=== PATIENT | male | born 1970 | race Caucasian/White ===

== ENCOUNTER → 2024-11-02 | Outpatient (CLI) | payer MEDICARE, OTHER, SELFPAY ==
--- NOTE | 2024-11-02 14:30 | XR_ITS ---
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 3 mm slice thickness, from the hemidiaphragms to above the apices of the lungs. Mediastinal and lung density settings have been obtained. Intravenous contrast administered 60 cc Isovue-370. Noncontrast images have also been obtained. 2-D sagittal coronal images obtained. Low dose protocols were performed. One or more of the following dose reduction techniques were used; automated exposure control, adjustment of the mA and/or KV according to patient size, use of iterative reconstruction technique. Findings: No thoracic aortic aneurysm dilatation or dissection Pulmonary artery opacification is poor No paratracheal tracheobronchial or bronchopulmonary adenopathy Significant diffuse miliary nodular pattern throughout the lower lung zones No pleural disease No visualized liver or splenic lesion Partial visualization orthopedic hardware thoracolumbar junction, severe osteopenia IMPRESSION: Diffuse miliary nodular infectious pattern throughout the lower lung zones, clinical correlation advised
== END | disposition home or self-care (01) ==
PROVIDERS: Referring Provider Registered Nurse; Visit Provider Registered Nurse
DX: R91.8 Other nonspecific abnormal finding of lung field (principal)
CPT/HCPCS: 71270; A4649; Q9967

== ENCOUNTER → 2025-04-27 | Outpatient (CLI) | payer MEDICARE, OTHER, SELFPAY ==
--- NOTE | 2025-04-27 14:31 | XR_ITS ---
Examination: Testicular sonography complete TECHNIQUE: Grayscale sonographic images testes, assessment arterial inflow venous outflow Doppler spectral analysis carful analysis Date and time: April 27, 2025 1445 hours INDICATIONS: Right testicular swelling and pain after falling 4 days ago. FINDINGS: Right testis 4.9 cm epididymis 12 mm Arterial flow testicle. No testicular mass Mild hydrocele Left testis 4.3 cm epididymis 12 mm Arterial flow testicle. No testicular mass IMPRESSION: No testicular torsion or testicular mass
== END | disposition home or self-care (01) ==
PROVIDERS: PCP Family Medicine; Referring Provider Registered Nurse; Visit Provider Registered Nurse
DX: S39.94XA Unspecified injury of external genitals, initial encounter (principal); W19.XXXA Unspecified fall, initial encounter
CPT/HCPCS: 76870

== ENCOUNTER 2025-06-29 19:24 | Emergency (ER) | payer MEDICARE, OTHER, SELFPAY ==
[2025-06-29 19:25] VITALS: BMI 18.7
[2025-06-29 19:43] VITALS: BP 115/76; PULSE 92; RESP 20; TEMP 36.7; O2SAT 96
--- NOTE | 2025-06-29 20:04 | PD.EDRME ---
Rapid Medical Screening Exam RME Arrival date/time: 06/29/25 19:24 54-year-old male with a history of renal cancer sent in by PCP for sudden 35 pound weight loss in the last 30 days, bibasilar pneumonia with a 17,000 white cell count, and pelvic fracture Chief Complaint: General Adult/Misc Complain Time Seen by Provider: 06/29/25 19:28 Vital signs: Vital Signs Temperature 98.1 F 06/29/25 19:43 Pulse Rate 92 06/29/25 19:43 Respiratory Rate 20 06/29/25 19:43 Blood Pressure 115/76 06/29/25 19:43 Pulse Oximetry (%) 96 06/29/25 19:43 Oxygen Delivery Method Room Air 06/29/25 19:43 Exam: 0 Clinical Impression: 0
[2025-06-29 20:51] VITALS: BP 122/80; PULSE 94; RESP 16; O2SAT 95
[2025-06-29 21:11] LABS: Influenza A Ag Negative; Influenza B Ag Negative
--- NOTE | 2025-06-29 21:59 | PD.EDSOB ---
ED SOB =RME/HPI General Chief Complaint: General Adult/Misc Complain Stated Complaint: sent by pcp pneumonia and pelvic rx Time Seen by Provider: 06/29/25 19:28 Arrival date/time: 06/29/25 19:24 RME / HPI RME / HPI Narrative: 06/29/25 19:24 54-year-old male with a history of renal cancer sent in by PCP for sudden 35 pound weight loss in the last 30 days, bibasilar pneumonia with a 17,000 white cell count, and pelvic fracture DR. TRIPLETT MAIN ED EVALUATION: Patient is a complex medical patient with Hx of Park/COPD/Esophageal stricture recquiring dilation due to Parkinson's Disease. Now presenting with ongoing productive cough x approximately 1 week. no defi fever, chills, vom, or diarrhera notes mild boutdd of SOB. PMH: Parkinson's Disease, Peripheral Neuropathy, Chronic Obstructive Pulmonary Disease, Asthma, Dysphagia, Gastrointestinal Bleed, Ulcer, Gastroesophageal Reflux Disease, Benign Prostatic Hyperplasia, Arthritis, Osteoporosis, Degenerative Joint Disease, Anemia, Bipolar Disorder PSH: Partial nephrectoomy, Multiple back surgeries, Chest tube thoracostomy due to empyema Allergies: NKDA Social: Prior smoker, occasional alcohol consumption, no illicit drug abuse Exam: 0 Impression: 0 Related Data Home Medications ?Medication ?Instructions ?Recorded ?Confirmed ascorbate calcium (vitamin C) 500 500 mg PO QDAY 05/21/19 02/18/23 mg tablet cetirizine 10 mg tablet (Zyrtec) 10 mg PO QDAY 05/21/19 02/18/23 ferrous sulfate 325 mg (65 mg 325 mg PO QDAY 05/21/19 02/18/23 iron) tablet (FeroSul) fluoxetine 40 mg capsule 40 mg PO ACHS 05/21/19 02/18/23 gabapentin 300 mg capsule 300 mg PO QID 05/21/19 02/18/23 hydrocodone 10 mg-acetaminophen 1 tab PO TID PRN Pain 05/21/19 02/18/23 325 mg tablet (Tully) Held on 02/18/23. Instructions: Resume on 02/19/23. ipratropium 18 mcg-albuterol 103 1 spray inhalation TID 05/21/19 02/18/23 mcg/actuation aerosol inhaler morphine 60 mg capsule,extended 60 mg PO BID 05/21/19 02/18/23 release pellets Held on 02/18/23. Instructions: Resume on 02/19/23. olanzapine 20 mg tablet 20 mg PO ACHS 05/21/19 02/18/23 omeprazole 40 mg capsule,delayed 40 mg PO QDAY 05/21/19 02/18/23 release tamsulosin 0.4 mg capsule (Flomax) 0.4 mg PO QDAY 05/21/19 02/18/23 vitamin B complex (B 1 tab PO QDAY 05/21/19 02/18/23 Complex-Vitamin B12 tablet) carbidopa 25 mg-levodopa 100 mg 2 tab PO QID 10/22/19 02/18/23 disintegrating tablet docusate sodium 100 mg tablet 200 mg PO QDAY 02/18/23 02/18/23 morphine 60 mg tablet,extended 60 mg PO BID 02/18/23 02/18/23 release Held on 02/18/23. Instructions: Resume on 02/19/23. Previous Rx's ?Medication ?Instructions ?Recorded amoxicillin 500 mg-potassium 1 tab PO TID #90 tabs 12/12/22 clavulanate 125 mg tablet (Augmentin) levofloxacin 750 mg tablet 750 mg PO Q24H #14 tabs 06/29/25 prednisone 20 mg tablet 20 mg PO QDAY 5 days #5 tabs 06/29/25 Allergies Allergy/AdvReac Type Severity Reaction Status Date / Time No Known Allergies Allergy Verified 06/29/25 19:30 Review of Systems Review of Systems Systems Reviewed: All systems reviewed, normal except as documented Past Medical History Past Medical History NEUROLOGIC: Positive Parkinson's Disease and Peripheral Neuropathy RESPIRATORY: Positive Chronic Obstructive Pulmonary Disease (COPD) and Asthma GASTROINTESTINAL: Positive Gastrointestinal Disorders (dysphagia), Gastrointestinal Bleed, Ulcer and Gastroesophageal Reflux Disease GENITOURINARY: Positive Benign Prostatic Hyperplasia MUSCULOSKELETAL: Positive Arthritis, Osteoporosis, Fractures and Degenerative Joint Disease HEMATOLOGIC: Positive Blood Disorders, Anemia and Clotting Problems PSYCHO/SOCIAL: Positive Bipolar Disorder OTHER HISTORY: Positive Blood Transfusions, Chicken Pox and Cancer (kidney) Surgical History SURGICAL: Positive Joint Replacement Social History SMOKING STATUS: Current every day smoker ED Exam Narrative Physical exam: GEN. APPEARANCE: The patient is alert awake oriented X-3 under no distress, lying down comfortably, appears chronically ill. Patient has good eye contact. Patient is cooperative. VITALS: All vitals were reviewed and the pulse ox is 95%, which is normal according to my interpretation HEENT: Normocephalic, atraumatic and nontender. Pupils are equal and reactive. Oral mucosa is moist. NECK: Supple, nontender, no meningismus, no JVD. There is no thyromegaly and no lymphadenopathy. CHEST: Nontender on palpation no deformity and no crepitus. CARDIOVASCULAR: Heart regular rhythm, no murmur or gallop rub or extra beats. LUNGS: Bibasilar rales with symmetrical chest rise. No laboring tachypnea or wheezing. No intercostal subcostal retraction. No rhonchi. ABDOMEN: Soft, flat, nontender to palpation, no guarding or rebound tenderness. There are no abnormal masses palpated. No pulsatile masses or bruits. Active and normal bowel sounds. EXTREMITIES: Normal inspection and palpation. No edema. No cyanosis. Patient is able to move all 4 extremities well SKIN: Warm and dry, no rashes noted. MUSCULOSKELETAL: No lumbar or midline bony tenderness. There is no CVA tenderness. No paraspinal muscle spasm or tenderness. NEURO: Cranial nerves II through XII grossly intact. There are no focal neurologic deficits noted. GCS is 15 PSYCHIATRIC: Patient is in normal mood and affect, cooperative. LYMPHATICS: No major lymphadenopathy noted. Course Quality Measures none Orders Category Date Time Status Bedside COVID-19 Antigen Test NOW Care 06/29/25 20:36 Active COVID-19 Screening Questionnaire NOW Care 06/29/25 20:[address] Screening NOW Care 06/29/25 21:[address] angio pelvis Stat Exams 06/29/25 21:59 Stop Req FLU A&B [Influenza A & B Rapid Panel] Stat Lab 06/29/25 20:39 Completed Levofloxacin/D5w 500 mg Ivpb [Levaquin Ivpb] Med 06/29/25 21:59 Discontinued 500 mg in 100 ml IV X1 Vital Signs Vital signs: Vital Signs Temperature 98.1 F 06/29/25 19:43 Pulse Rate 92 06/29/25 19:43 Respiratory Rate 20 06/29/25 19:43 Blood Pressure 115/76 06/29/25 19:43 Pulse Oximetry (%) 96 06/29/25 19:43 Oxygen Delivery Method Room Air 06/29/25 19:43 Shortness of Breath / Dyspnea MDM Narrative MDM Narrative:: Scribe Attestation: I, Nighat Meyers, am scribing for and in the presence of Dr. Langston. Provider Notation: Although this document has been carefully reviewed, there may still be some phonetic and other typographical errors. These errors are purely grammatical due to imperfections in the software program and should not be construed in any way to compromise the substance of the patient's medical care during this visit. Please see PE findings. Laboratory findings demonstrate elevated WBC of 17.3, stable hemoglobin of 13, and mild thrombocytosis with platelet count of 457. Serum chemistries essentially unremarkable. CXR demonstrates bibasillar PNA. CT Abdomen/Pelvis demonstrates comminuted inferior pubic rami frx with pelvic hematoma. Further inquiry indicates patient fell 2 months [employer] and currently has no pelvic pain. Hemodynamically stable. Radiologist suggests IV to delineate extent of hematoma. Will administer Levaquin for PNA and will formulate disposition post-CTA. Patient refused CT scan. Will discharge to home given hemodynamic stability and time that has elapsed since pelvic fracture. Will place on 14-day course of Levaquin with instructions to F/U with PMD, precautionary instructions issued. Patient data External records reviewed:: [facility] previous records (Reviewed prior ED records from 12/04/22. Patient was seen for Empyema.) Clinical information provided by:: patient Social determinants that could affect healthcare access:: none Patient has the following chronic illnesses:: Parkinson's Disease, Peripheral Neuropathy, Chronic Obstructive Pulmonary Disease, Asthma, Dysphagia, Gastrointestinal Bleed, Ulcer, Gastroesophageal Reflux Disease, Benign Prostatic Hyperplasia, Arthritis, Osteoporosis, Degenerative Joint Disease, Anemia, Bipolar Disorder How is presenting disease/condition affected by chronic disease/condition?: exacerbated by Evaluation data The following diagnostics were reviewed and interpreted by me:: other (specify) (N/A) Lab and/or radiology exams considered but not ordered:: None Interpretation Summary: See MDM above Medications / Prescriptions Medications or Prescriptions considered but not ordered:: None Medication administrations:: Medication Administration History Discontinued Medications Levofloxacin/Dextrose (Levaquin Ivpb) 500 mg in 100 mls @ 100 mls/hr IV X1 ONE Stop: 06/29/25 22:58 Last Infusion: 06/29/25 23:32 Dose: Infused Documented By: Admin: 06/29/25 22:31 Dose: 100 mls/hr Documented By: NYLA See above if any Consultations Consultation(s) initiated? (list below): No Diagnosis Shortness of Breath Differential Diagnosis: congestive heart failure, community acquired pneumonia and pulmonary embolism Most likely diagnosis given after review of the tests above:: Pneumonia, Pelvic hematoma, Fracture of inferior pubic ramus Admission Indicated Admission indicated?: not indicated Explain why admission is indicated or not indicated:: Patient does not meet admission criteria Admission Request Was there a request for admission?: No Disposition Plan Disposition Plan: Discharge Discharge Attestation Discharge Attestation: The patient and all family members were given an opportunity to ask questions and understood the discharge instructions. Discharge instructions specifically effects, indications for sooner follow up or return to the emergency department, and the expected course of current diagnosis. Patient condition: Stable Discharge Plan Plan Patient Disposition: HOME (Self Care) Discharge Disposition comment: Stable Prescriptions/Referrals Prescriptions/Med Rec: New levofloxacin 750 mg tablet 750 mg PO Q24H Qty: 14 0RF prednisone 20 mg tablet 20 mg PO QDAY 5 Days Qty: 5 0RF Taper: Prednisone Taper 40 mg DAILY for 3 Days and 0 Hour No Action omeprazole 40 mg capsule,delayed release(DR/EC) 40 mg PO QDAY gabapentin 300 mg capsule 300 mg PO QID fluoxetine 40 mg capsule 40 mg PO ACHS olanzapine 20 mg tablet 20 mg PO ACHS hydrocodone-acetaminophen [Tully] 10-325 mg tablet 1 tab PO TID PRN (Reason: Pain) ipratropium-albuterol 18-103 mcg/actuation aerosol 1 spray INH TID ferrous sulfate [FeroSul] 325 mg (65 mg iron) tablet 325 mg PO QDAY tamsulosin [Flomax] 0.4 mg capsule 0.4 mg PO QDAY ascorbate calcium (vitamin C) 500 mg tablet 500 mg PO QDAY vitamin B complex [B Complex-Vitamin B12] tablet 1 tab PO QDAY cetirizine [Zyrtec] 10 mg tablet 10 mg PO QDAY morphine 60 mg capsule,extend.release pellets 60 mg PO BID carbidopa-levodopa 25-100 mg tablet,disintegrating 2 tab PO QID morphine 60 mg tablet extended release 60 mg PO BID Patient Comments: TAKE 1 TABLET BY MOUTH EVERY 12 HOURS docusate sodium 100 mg Tablet 200 mg PO QDAY amoxicillin-pot clavulanate [Augmentin] 500-125 mg tablet 1 tab PO TID Qty: 90 3RF Rx Instructions: 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 Print Language: Malay Stand Alone Forms: [employer] Award Info., Patient Portal Info Letter
[2025-06-29] MEDS: LEVOFLOXACIN/D5W 500 MG IVPB 500 MG/100 ML BAG 100 MG IV (22:31)
[2025-06-29 23:06] VITALS: BP 115/67; PULSE 79; RESP 12; TEMP 36.4; O2SAT 95
--- NOTE | 2025-06-29 23:38 | PC.NURSE ---
THIS RN ENTERED ROOM TO UPDATE PATIENT CT ON THEIR WAY TO TAKE HIM TO CT SCAN. PER PATIENT I DONT WANT TO DO IT I JUST WANT TO LEAVE. . PER PATIENT WE JUST WANT TO LEAVE. WE DONT WANT THE CT SCAN. . PROVIDER D INFORMED.
[2025-06-29 23:52] VITALS: BP 124/85; PULSE 69; RESP 14; O2SAT 99
== END 2025-06-29 23:52 | disposition home or self-care (01) ==
PROVIDERS: Emergency Provider Emergency Medicine
DX: J18.9 Pneumonia, unspecified organism (principal); S32.511A Fracture of superior rim of right pubis, initial encounter for closed fracture; W19.XXXA Unspecified fall, initial encounter; F17.210 Nicotine dependence, cigarettes, uncomplicated
CPT/HCPCS: 36415; 71046; 74176; 80053; 82150; 83690; 85025; 87502; 87635; 96365; 99282; J1956

== ENCOUNTER → 2025-06-29 | Outpatient (CLI) | payer MEDICARE, OTHER, SELFPAY ==
--- NOTE | 2025-06-29 10:29 | XR_ITS ---
Examination: CT abdomen and pelvis without contrast. Coronal 3-D reconstructions. Sagittal 2-D reconstructions. Date and time of exam: June 29, 2025, 1107 hours INDICATIONS: Right-sided abdominal pain beginning 2 weeks ago COMPARISON: February 04, 2023 CTDI: vol (mGy): 6.5 DLP: (mGycm): 354 Technique: Axial images of the abdomen have been obtained, 3 mm slice thickness Intravenous contrast material has not been administered. Low dose protocols were performed. One or more of the following dose reduction techniques were used; automated exposure control, adjustment of the mA and/or KV according to patient size, use of iterative reconstruction technique. Findings: COPD with scarring in the right lower lung zone No visualized liver or splenic lesion No definite gallstones Lack of intravenous contrast severely limits the study Scarred atrophic right kidney No hydronephrosis or ureteral calculi Heavy abdominal aortic calcification Abundant stool throughout the colon especially in the rectosigmoid with thickening of the rectal wall Contracted urinary bladder Interval severely comminuted subacute fractures right inferior superior pubic rami Hips intact Hematoma about the rami fractures IMPRESSION: Severely comminuted subacute fractures right superior and inferior pubic rami Recommend repeating the study with intravenous contrast to assess the extent of hematoma in the right pelvis
--- NOTE | 2025-06-29 10:31 | XR_ITS ---
EXAMINATION: PA lateral chest 2 views Technique when upright PA lateral chest 2 views Date and time: June 29, 2025, 11:13 a.m., comparison February 16, 2024 INDICATIONS: Shortness of breath beginning 2 weeks ago. FINDINGS: Bilateral perihilar pneumonia Normal heart size Prominent osteopenia Probable pleural-parenchymal scarring in the right upper lobe IMPRESSION: Bilateral perihilar pneumonia, please see the CT chest report November 02, 2024 indicating significant diffuse miliary nodular pattern throughout both lungs, consider repeat high-resolution CT chest without contrast follow-up
[2025-06-29 11:41] LABS: Basophils # (Auto) 0.1 Thou/mm3 (0.0-0.2); Basophils % (Auto) 0 % (0-2.5); Eosinophils # (Auto) 0.1 Thou/mm3 (0.0-0.5); Eosinophils % (Auto) 1 % (0-10); Hematocrit 40.1 % (41.0-53.0); Hemoglobin 13.0 g/dL (13.5-16.0); Immature Granulocytes Auto 0.23 Thou/mm3 (0.00-0.00); Lymphocytes # (Auto) 1.9 Thou/mm3 (1.0-4.8); Lymphocytes % (Auto) 11 % (10-50); Mean Corpuscular HGB Conc 32.4 g/dl (31.0-37.0); Mean Corpuscular Hemoglobin 29.7 pg (25.0-35.0); Mean Corpuscular Volume 92 fL (80-100); Monocytes # (Auto) 0.9 Thou/mm3 (0.0-0.8); Monocytes % (Auto) 5 % (0-12); Neutrophils # (Auto) 14.2 Thou/mm3 (1.8-7.7); Neutrophils % (Auto) 82 % (37-80); Nucleated Red Blood Cell # 0.00 Thou/mm3 (0.00-0.00); Nucleated Red Blood Cell % 0 /100 WBC (0); Platelet Count 457 Thou/mm3 (140-440); RDW Standard Deviation 47.7 fL (35.1-43.9); Red Blood Count 4.38 Miln/mm3 (4.50-5.90); White Blood Count 17.3 Thou/mm3 (3.8-10.6)
[2025-06-29 12:14] LABS: Alanine Aminotransferase < 7 U/L (10-49); Albumin, Serum 4.1 gm/dL (3.5-5.0); Albumin/Globulin Ratio 1.2 (1.2-2.2); Alkaline Phosphatase 186 U/L (46-116); Amylase 58 U/L (30-118); Anion Gap 8 (7-16); Aspartate Amino Transferase 23 U/L (0-34); BUN/Creatinine Ratio 9 Ratio (12-20); Bilirubin,Total 0.3 mg/dL (0.3-1.2); Blood Urea Nitrogen 7 mg/dL (9-23); Calcium 9.3 mg/dL (8.3-10.6); Calcium (Corrected) 9.3 mg/dL (8.5-10.1); Carbon Dioxide 29.5 mMol/L (20.0-31.0); Chloride 99 mMol/L (98-107); Creatinine (Component) 0.8 mg/dL (0.6-1.3); Globulin 3.5 gm/dL (2.3-3.5); Glucose 96 mg/dL (74-106); Lipase 43 U/L (12-53); Osmolality,Calculated 269 (275-295); Potassium 4.5 mMol/L (3.4-5.1); Sodium 136 mMol/L (136-145); Total Protein 7.6 gm/dL (5.7-8.2); eGFR > 60 See Note
== END | disposition home or self-care (01) ==
PROVIDERS: PCP Family Medicine; Referring Provider Nurse Practitioner Family; Visit Provider Nurse Practitioner Family
DX: S32.511A Fracture of superior rim of right pubis, initial encounter for closed fracture (principal); X58.XXXA Exposure to other specified factors, initial encounter; J18.9 Pneumonia, unspecified organism
CPT/HCPCS: 36415; 71046; 74176; 80053; 81001; 82150; 83690; 85025

== ENCOUNTER → 2025-07-19 | Outpatient (CLI) | payer MEDICARE, OTHER, SELFPAY ==
--- NOTE | 2025-07-19 13:00 | XR_ITS ---
Examination: CT chest with intravenous contrast CT chest without intravenous contrast 2-D reconstructions Date and time of exam: July 19, 2025, 1335 hours, comparison November 02, 2024 INDICATIONS: Chest pain shortness of breath beginning 1 month ago CTDI:vol (mGy) 16.2 DLP: (mGycm) 593 Technique: Multiple axial sections of the thorax have been obtained. 3 mm slice thickness, from the hemidiaphragms to above the apices of the lungs. Mediastinal and lung density settings have been obtained. Intravenous contrast administered 60 cc Isovue-370. Noncontrast images have also been obtained. 2-D sagittal coronal images obtained. Low dose protocols were performed. One or more of the following dose reduction techniques were used; automated exposure control, adjustment of the mA and/or KV according to patient size, use of iterative reconstruction technique. Findings: No thoracic aortic aneurysmal dilatation No pulmonary artery filling defects No paratracheal tracheobronchial or bronchopulmonary adenopathy Soft parenchymal disease throughout both lungs, most prominent in the right upper lobe and right lower lobe The lower lobe infiltrate again appears miliary in configuration No visualized liver or splenic lesion Distended gallbladder partially visualized Atrophic right kidney No pancreatic mass Prominent osteopenia with chronic osteoporotic compression T8 and T7 T8 compression shows sclerosis suspicious for pathologic fracture IMPRESSION: Miliary infiltrate, extensive throughout the lungs again noted, differential would include active tuberculosis Compression fractures T7, T8, T8 compression fracture demonstrate sclerosis suspicious for pathologic fracture, recommend MRI thoracic spine follow-up pre and postcontrast
== END | disposition home or self-care (01) ==
PROVIDERS: PCP Registered Nurse; Referring Provider Registered Nurse; Visit Provider Registered Nurse
DX: R91.8 Other nonspecific abnormal finding of lung field (principal); M48.54XA Collapsed vertebra, not elsewhere classified, thoracic region, initial encounter for fracture
CPT/HCPCS: 71270; A4649; Q9967

== ENCOUNTER → 2025-07-21 | Outpatient (CLI) | payer MEDICARE, OTHER, SELFPAY ==
--- NOTE | 2025-07-21 15:00 | XR_ITS ---
EXAMINATION: MRI thoracic spine without intravenous contrast MRI thoracic spine with intravenous contrast Date and time of exam: February 18, 2025, 1537 hours INDICATIONS: Compression fractures T7, T8, sclerosis and radiolucency involving the T8 thoracic vertebral body fracture suspicious for pathologic fracture Technique: Multiple MRI axial and sagittal sections lumbar spine. Sagittal T2-weighted images, TR 3500, TE 118 T1 weighted transverse sections, TR 688 T8.5, T2-weighted sagittal sections T1 weighted sagittal sections TR 621, TE 30 T2 axial sections, TR 4, 190, TE 84. Post contrast images 13 cc gadolinium axial sagittal Findings: Compression fractures T7, T8, T6, T5, T4 The T8 fracture is subacute, with increased signal on the precontrast images This vertebral body shows enhancement on the postcontrast image again likely subacute fracture, no epidural tumor impingement upon the thoracic cord IMPRESSION: Severe osteopenia with compression fractures at T4, T5, T6, T7, T8 The T8 vertebral body fracture appears to be a subacute fracture, no findings diagnostic for osseous metastatic disease
== END | disposition home or self-care (01) ==
PROVIDERS: PCP Registered Nurse; Referring Provider Registered Nurse; Visit Provider Registered Nurse
DX: M85.88 Other specified disorders of bone density and structure, other site (principal); M48.54XA Collapsed vertebra, not elsewhere classified, thoracic region, initial encounter for fracture
CPT/HCPCS: 72157; A9577

== ENCOUNTER → 2025-07-21 | Outpatient (CLI) | payer MEDICARE, OTHER, SELFPAY ==
[2025-07-21 09:42] LABS: Quantiferon-TB* See Sep Rpt
== END | disposition home or self-care (01) ==
PROVIDERS: PCP Family Medicine; Referring Provider Registered Nurse; Visit Provider Registered Nurse
DX: R91.8 Other nonspecific abnormal finding of lung field (principal); Z11.1 Encounter for screening for respiratory tuberculosis
CPT/HCPCS: 86480